=== PATIENT | female | born 1960 | race Caucasian/White ===

== ENCOUNTER → 2016-07-28 | Outpatient (CLI) | payer OTHER | LOC: VM.CT 15:13 | PROVIDERS: ATTEND Family Medicine | DX: R07.89 Other chest pain (principal); R91.8 Other nonspecific abnormal finding of lung field | CPT/HCPCS: 71250 ==

== ENCOUNTER 2019-04-15 18:48 | Emergency (ER) | payer OTHER ==
[2019-04-15] MEDS ORDERED: Dexamethasone 4 MG/ML SDV IM ONE (19:12)
[2019-04-15] MEDS ORDERED: Albuterol/Ipratropium 3.0-0.5 MG/3 ML Neb Soln NEB ONE (19:12)
--- NOTE | 2019-04-15 19:19 | EDM.PDOC ---
ED HPI GENERAL MEDICAL PROBLEM - General Chief Complaint: Respiratory Problem Stated Complaint: Cough, SOB Time Seen by Provider: 04/15/19 19:00 Source of Information: Reports: Patient History Limitations: Reports: No Limitations - History of Present Illness INITIAL COMMENTS - FREE TEXT/NARRATIVE: Patient comes into the emergency department with complaint of cough, shortness of breath, and body aches. Patient states that she has recently been on Augmentin. She completed it approximately 7-10 days ago for bronchitis. Patient believes that she was feeling better for about 2-3 days after antibiotics were completed. She then began to develop a significant cough that has progressed over the past week. Today she states the body aches began, shortness of breath with excretion was noted as well. She has difficulty taking a deep breath without coughing significantly. She denies any chest pain, SOB at rest, peripheral edema, or dizziness, or nausea and vomiting. Onset: Gradual Location: Reports: Chest Quality: Reports: Other Severity: Moderate Improves with: Reports: Rest Worsens with: Reports: Movement Associated Symptoms: Reports: Cough, cough w sputum, Fever/Chills upper chest Pain Score (Numeric/FACES): 7 - Related Data Allergies Allergy/AdvReac Type Severity Reaction Status Date / Time ofloxacin [From Floxin] Allergy Hives Verified 04/15/19 19:21 sulfamethoxazole Allergy Swelling Verified 04/15/19 19:21 [From Septra] trimethoprim [From Septra] Allergy Swelling Verified 04/15/19 19:21 Home Meds: Home Meds predniSONE [Prednisone] 20 mg PO BID #8 tablet 04/15/19 [Rx] Past Medical History - Past Health History Medical/Surgical History: Denies Medical/Surgical History ED ROS GENERAL - Review of Systems Review Of Systems: See Below Constitutional: Reports: Malaise HEENT: Reports: No Symptoms Respiratory: Reports: Shortness of Breath, Wheezing, Cough, Sputum Cardiovascular: Reports: No Symptoms Endocrine: Reports: No Symptoms GI/Abdominal: Reports: No Symptoms : Reports: No Symptoms Musculoskeletal: Reports: No Symptoms Skin: Reports: No Symptoms Neurological: Reports: No Symptoms Psychiatric: Reports: No Symptoms Hematologic/Lymphatic: Reports: No Symptoms Immunologic: Reports: No Symptoms ED EXAM, GENERAL - Physical Exam Exam: See Below Exam Limited By: No Limitations General Appearance: Alert, WD/WN, No Apparent Distress Head: Atraumatic, Normocephalic Neck: Normal Inspection, Supple, Non-Tender, Full Range of Motion Respiratory/Chest: No Respiratory Distress, No Accessory Muscle Use, Chest Non- Tender, Wheezing Cardiovascular: Normal Peripheral Pulses, Regular Rate, Rhythm, No Edema GI/Abdominal: Normal Bowel Sounds, Soft, Non-Tender Back Exam: Normal Inspection, Full Range of Motion Extremities: Normal Inspection, Normal Range of Motion, Non-Tender, No Pedal Edema, Normal Capillary Refill Neurological: Alert, Oriented, Normal Gait Psychiatric: Normal Affect, Normal Mood Skin Exam: Warm, Dry, Intact, Normal Color Course - Vital Signs Last Recorded V/S: Last Vital Signs Temp 36.9 C 04/15/19 18:55 Pulse 82 04/15/19 19:50 Resp 16 04/15/19 19:50 BP 131/79 04/15/19 18:55 Pulse Ox 96 04/15/19 19:50 - Orders/Labs/Meds Orders: Active Orders 24 hr Category Date Time Status RT Aerosol Therapy [RC] ASDIRECTED Care 04/15/19 19:13 Active Labs: Laboratory Tests 04/15/19 04/15/19 Range/Units 19:48 19:48 WBC 8.5 (4.0-10.0) x10^3/uL RBC 5.06 (4.00-5.50) x10^6/uL Hgb 15.2 D (12.0-16.0) g/dL Hct 45.8 (33.0-47.0) % MCV 90.5 (78.0-93.0) fL MCH 30.0 (26.0-32.0) pg MCHC 33.2 (32.0-36.0) g/dL RDW Coeff of Clem 13.4 (10.0-15.0) % Plt Count 248 (130-400) x10^3/uL Neut % (Auto) 62.4 (50.0-80.0) % Lymph % (Auto) 22.6 L (25.0-50.0) % Letcher % (Auto) 9.8 (2.0-11.0) % Eos % (Auto) 4.8 H (0.0-4.0) % Baso % (Auto) 0.4 (0.2-1.2) % Sodium 144 (69-191) mmol/L Potassium 3.9 (1.5-9.9) mmol/L Chloride 106 (54-184) mmol/L Carbon Dioxide 27 (21-32) mmol/L Anion Gap 14.9 (10-20) mmol/L BUN 18 (7-18) mg/dL Creatinine 0.8 (0.55-1.02) mg/dL Est Cr Clr Drug Dosing 66.45 mL/min Estimated GFR (MDRD) > 60 Glucose 111 H (74-106) mg/dL Calcium 9.0 (8.5-10.1) mg/dL Corrected Calcium 9.16 (8.5-10.1) mg/dL Total Bilirubin 0.6 (0.2-1.0) mg/dL AST 16 (15-37) U/L ALT 32 (14-59) U/L Alkaline Phosphatase 94 (46-116) U/L Total Protein 7.3 (6.4-8.2) g/dL Albumin 3.8 (3.4-5.0) g/dL Globulin 3.5 Albumin/Globulin Ratio 1.09 Meds: Medications Discontinued Medications Generic Name Dose Route Start Last Admin Trade Name Freq PRN Reason Stop Dose Admin Albuterol 1 packet 04/15/19 20:22 04/15/19 20:39 Take Home: Albuterol 6.7 Gm, 1 Inh Pack INH 04/15/19 20:23 1 packet ONETIME ONE Administration Albuterol/Ipratropium 3 ml 04/15/19 19:12 04/15/19 19:40 Duoneb 3.0-0.5 Mg/3 Ml NEB 04/15/19 19:13 3 ml ONETIME ONE Administration Dexamethasone 8 mg 04/15/19 19:12 04/15/19 19:35 Dexamethasone IM 04/15/19 19:13 8 mg ONETIME ONE Administration Prednisone 1 packet 04/15/19 20:22 04/15/19 20:39 Take Home: Prednisone 20 Mg, 2 Tab Pack PO 04/15/19 20:23 1 packet ONETIME ONE Administration Departure - Departure Time of Disposition: 20:30 Disposition: Home, Self-Care 01 Condition: Good Clinical Impression: Bronchitis - Discharge Information *PRESCRIPTION DRUG MONITORING PROGRAM REVIEWED*: Not Applicable *COPY OF PRESCRIPTION DRUG MONITORING REPORT IN PATIENT TIMOTHY: Not Applicable Prescriptions: predniSONE [Prednisone] 20 mg PO BID #8 tablet Instructions: Bronchospasm, Adult, Metered Dose Inhaler (No Spacer Used) Referrals: Rody Franklin MD [Primary Care Provider] - Forms: ED Department Discharge Additional Instructions: 1. rest 2. increase water intake 3. use inhaler as needed 1-2 puffs every 4 hours as needed for severe cough and SOB 4. Take prednisone as prescribed. 5. Follow up in the clinic if symptoms progress 6. Call with any questions or concerns. - My Orders Last 24 Hours: My Active Orders 04/15/19 19:13 RT Aerosol Therapy [RC] ASDIRECTED - Assessment/Plan Last 24 Hours: My Active Orders 04/15/19 19:13 RT Aerosol Therapy [RC] ASDIRECTED Assessment:: 1. Bronchitis Plan: 1. Labs completed in the ER. Results reviewed with the patient 2. Chest x-ray completed in ER. Results reviewed with patient 3. DuoNeb completed in the ER 4. Dexamethasone given in the ER Education regarding activity, diet, OTC medication, antibiotic use, and follow- up care All questions and concerns were addressed prior to patient's discharge
[2019-04-15 19:21] VITALS: BP 131/79
--- NOTE | 2019-04-15 20:04 | CR ---
[id number] RAD/RAD Chest PA And Lateral EXAM: RAD Chest PA And Lateral INDICATION: COUGH, SOB COMPARISON: None. DISCUSSION: Cardiomediastinal silhouette is normal in size and contour. Bilateral symmetric lung hyperinflation with flattening of the hemidiaphragms. Findings are nonspecific but commonly seen as sequela of chronic obstructive pulmonary disease. No infiltrate, effusion, pneumothorax, or edema. IMPRESSION: No acute findings in the chest. Other findings are described above. Bereket Gutierrez MD 04/15/192003 Thank you for allowing us to participate in the care of your patient.
[2019-04-15 20:15] LABS: CHLORIDE,CL 106 mmol/L (54-184); SODIUM,NA 144 mmol/L (69-191)
[2019-04-15 20:16] LABS: ANION GAP 14.9 mmol/L (10-20)
[2019-04-15] MEDS ORDERED: Take Home: predniSONE 20 MG, 2 Tab Pack PO ONE (20:22)
[2019-04-15] MEDS ORDERED: Take Home: Albuterol 6.7 GM Inhaler, 1 Inhaler Pack INH ONE (20:22)
[2019-04-15 20:25] VITALS: PULSE 82
== END 2019-04-15 20:45 | disposition home or self-care (01) ==
LOC: VM.ED 18:48
DX: J40 Bronchitis, not specified as acute or chronic (principal); Z88.2 Allergy status to sulfonamides; Z88.8 Allergy status to other drugs, medicaments and biological substances; Z79.899 Other long term (current) drug therapy; Z88.1 Allergy status to other antibiotic agents
CPT/HCPCS: 36415; 71046; 80053; 85025; 94640; 96372; 99285; A9270; J1100; J7620-GY

== ENCOUNTER 2021-10-03 08:17 | Day surgery (SDC) | payer OTHER ==
[~2021-10-03 08:17] MED LIST: Lactated Ringers 1,000 ML IV SCH
[2021-10-03] MEDS ORDERED: Lidocaine/Prilocaine 2.5-2.5% Crm 5 GM Tube TOP ONE (08:48)
[2021-10-03] MEDS ORDERED: fentaNYL 100 MCG/2 ML SDV ONE (09:37)
[2021-10-03] MEDS ORDERED: Propofol 200 MG/20 ML SDV ONE (10:09)
[2021-10-03 11:54] VITALS: BP 120/72; PULSE 62
== END 2021-10-03 12:20 | disposition home or self-care (01) ==
LOC: VM.SDS 08:17
PROVIDERS: ATTEND Student in an Organized Health Care Education/Training Program
DX: K62.1 Rectal polyp (principal); K59.00 Constipation, unspecified; E66.9 Obesity, unspecified; F41.1 Generalized anxiety disorder; E78.1 Pure hyperglyceridemia; J45.909 Unspecified asthma, uncomplicated; Z68.32 Body mass index [BMI] 32.0-32.9, adult; Z90.89 Acquired absence of other organs; Z90.711 Acquired absence of uterus with remaining cervical stump; Z98.890 Other specified postprocedural states; Z79.82 Long term (current) use of aspirin; Z79.899 Other long term (current) drug therapy; Z87.19 Personal history of other diseases of the digestive system
CPT/HCPCS: 00811; J2704; J3010; J7120

== ENCOUNTER 2021-11-15 18:29 | Emergency (ER) | payer OTHER ==
[2021-11-15 18:43] VITALS: BP 137/73; PULSE 75
[2021-11-15] MEDS ORDERED: Take Home: predniSONE 20 MG, 2 Tab Pack PO ONE (19:38)
== END 2021-11-15 19:45 | disposition home or self-care (01) ==
LOC: VM.ED 18:29
DX: M25.561 Pain in right knee (principal); E78.00 Pure hypercholesterolemia, unspecified; E66.9 Obesity, unspecified; Z68.30 Body mass index [BMI] 30.0-30.9, adult; Z79.82 Long term (current) use of aspirin
CPT/HCPCS: 36415; 73562-RT; 85379; 99283; J7512

== ENCOUNTER 2023-03-08 12:12 | Emergency (ER) | payer OTHER ==
[2023-03-08 12:53] LABS: BASOPHILS PERCENT AUTO 0.4 % (0.2-1.2); EOSINOPHILS ABSOLUTE AUTO 0.3 x10^3/uL (0.0-0.5); EOSINOPHILS PERCENT AUTO 2.6 % (0.0-4.0); HEMATOCRIT 44.9 % (33.0-47.0); HEMOGLOBIN 15.4 g/dL (12.0-16.0); IMMATURE GRAN ABSOLUTE AUTO 0.04 x10^3/uL (0.00-0.07); LYMPHOCYTES PERCENT AUTO 18.5 % (25.0-50.0); MEAN CORPUSCULAR HEMOGLOBIN 30.5 pg (26.0-32.0); MEAN CORPUSCULAR HGB CONC 34.3 g/dL (32.0-36.0); MEAN CORPUSCULAR VOLUME 88.9 fL (78.0-93.0); MONOCYTES PERCENT AUTO 9.5 % (2.0-11.0); NEUTROPHILS ABSOLUTE AUTO 7.2 x10^3/uL (1.8-7.7); NEUTROPHILS PERCENT AUTO 68.6 % (50.0-80.0); PLATELET COUNT,PLT 284 x10^3/uL (130-400); RED BLOOD CELL COUNT 5.05 x10^6/uL (4.00-5.50); WHITE BLOOD CELL COUNT,WBC 10.5 x10^3/uL (4.0-10.0)
[2023-03-08 13:05] LABS: A/G RATIO 1.18; ALANINE AMINOTRANSFERASE,ALT 25 U/L (14-59); ALBUMIN 3.9 g/dL (3.4-5.0); ALKALINE PHOSPHATASE 93 U/L (46-116); ASPARTATE AMNIOTRANSFERASE,AST 17 U/L (15-37); BILIRUBIN TOTAL 0.2 mg/dL (0.2-1.0); BLOOD UREA NITROGEN,BUN 21 mg/dL (7-18); CALCIUM 9.4 mg/dL (8.5-10.1); CARBON DIOXIDE,CO2 26 mmol/L (21-32); CHLORIDE,CL 103 mmol/L (98-107); CREATININE 0.9 mg/dL (0.55-1.02); GLUCOSE RANDOM 110 mg/dL (70-99); POTASSIUM,K 4.1 mmol/L (3.5-5.1); PROTEIN TOTAL,TP 7.2 g/dL (6.4-8.2); SODIUM,NA 139 mmol/L (136-145)
[2023-03-08 13:07] LABS: ANION GAP 14.1 mmol/L (5-15); ESTIMATED GFR 71 mL/min (>=60)
[2023-03-08] MEDS ORDERED: Sodium Chloride 0.9% 500 ML IV SCH (13:15)
[2023-03-08 15:12] VITALS: BP 119/74; PULSE 68
== END 2023-03-08 14:20 | disposition home or self-care (01) ==
LOC: VM.ED 12:12
DX: R10.13 Epigastric pain (principal); F41.9 Anxiety disorder, unspecified; E66.9 Obesity, unspecified; Z68.32 Body mass index [BMI] 32.0-32.9, adult; Z79.899 Other long term (current) drug therapy; Z98.890 Other specified postprocedural states
CPT/HCPCS: 80053; 84484; 85025; 85610; 93005; 93010; 96360; 99284; 99284-25; J7040

== ENCOUNTER 2023-08-10 18:48 | Emergency (ER) | payer OTHER ==
[2023-08-10 19:37] LABS: BASOPHILS PERCENT AUTO 0.2 % (0.2-1.2); EOSINOPHILS ABSOLUTE AUTO 0.2 x10^3/uL (0.0-0.5); EOSINOPHILS PERCENT AUTO 2.7 % (0.0-4.0); IMMATURE GRAN ABSOLUTE AUTO 0.03 x10^3/uL (0.00-0.07); LYMPHOCYTES ABSOLUTE AUTO 1.8 x10^3/uL (1.0-4.8); LYMPHOCYTES PERCENT AUTO 19.6 % (25.0-50.0); MEAN CORPUSCULAR HGB CONC 32.4 g/dL (32.0-36.0); MEAN CORPUSCULAR VOLUME 92.5 fL (78.0-93.0); MONOCYTES ABSOLUTE AUTO 0.7 x10^3/uL (0.0-0.8); MONOCYTES PERCENT AUTO 7.8 % (2.0-11.0); NEUTROPHILS ABSOLUTE AUTO 6.2 x10^3/uL (1.8-7.7); NEUTROPHILS PERCENT AUTO 69.4 % (50.0-80.0); PLATELET COUNT,PLT 279 x10^3/uL (130-400); WHITE BLOOD CELL COUNT,WBC 8.9 x10^3/uL (4.0-10.0)
[2023-08-10 19:58] LABS: A/G RATIO 0.83; ALANINE AMINOTRANSFERASE,ALT 20 U/L (14-59); ALKALINE PHOSPHATASE 72 U/L (46-116); ASPARTATE AMNIOTRANSFERASE,AST 15 U/L (15-37); BILIRUBIN TOTAL 0.6 mg/dL (0.2-1.0); BLOOD UREA NITROGEN,BUN 13 mg/dL (7-18); C-REACTIVE PROTEIN 4.83 mg/dL (<=0.50); CARBON DIOXIDE,CO2 30 mmol/L (21-32); CHLORIDE,CL 104 mmol/L (98-107); CREATININE 0.9 mg/dL (0.55-1.02); GLUCOSE RANDOM 153 mg/dL (70-99); POTASSIUM,K 3.8 mmol/L (3.5-5.1); PROTEIN TOTAL,TP 6.6 g/dL (6.4-8.2); SODIUM,NA 143 mmol/L (136-145)
[2023-08-10 20:02] LABS: ANION GAP 12.8 mmol/L (5-15); ESTIMATED GFR 71 mL/min (>=60)
[2023-08-10] MEDS ORDERED: oxyCODONE 5 MG Tab PO ONE ×2 (20:28→21:04)
[2023-08-10 21:34] VITALS: PULSE 90
[2023-08-10 22:27] VITALS: BP 167/96
== END 2023-08-10 22:10 | disposition short-term general hospital (02) ==
LOC: VM.ED 18:48
DX: M79.661 Pain in right lower leg (principal); I10 Essential (primary) hypertension; E66.9 Obesity, unspecified; Z96.641 Presence of right artificial hip joint; Z79.82 Long term (current) use of aspirin; Z79.899 Other long term (current) drug therapy; Z90.710 Acquired absence of both cervix and uterus; Z68.32 Body mass index [BMI] 32.0-32.9, adult
CPT/HCPCS: 36415; 80053; 83735; 85025; 85379; 86140; 99284; A9270-GY